=== PATIENT | male | born 1955 | race African-American/Black ===

== ENCOUNTER 2018-02-01 20:50 | Emergency (ER) | payer MEDICARE, OTHER ==
[~2018-02-01] VITALS: Ht 172.7 cm; Wt 81.6 kg
--- NOTE | 2018-02-01 20:50 | NUR ---
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 VSS NO ACUTE DISTRESS AT THIS TIME. WILL CONTINUE TO MONITOR FOR ANY CHANGES DURING THIS TIME.
--- NOTE | 2018-02-01 20:51 | NUR ---
ER MD ACOSTA AT BEDSIDE
[2018-02-01 21:17] LABS: BASOPHILS # (AUTO) 0.2 /CMM (0.0-0.2); BASOPHILS % (AUTO) 2.5 % (0.0-2.0); EOSINOPHILS % (AUTO) 1.4 % (0.0-6.0); HEMATOCRIT 51 % (39-51); HEMOGLOBIN 15.8 g/dL (13.5-17.5); LYMPHOCYTES # (AUTO) 2.2 /CMM (0.8-4.8); LYMPHOCYTES % (AUTO) 29.8 % (20.0-44.0); MEAN CORPUSCULAR HEMOGLOBIN 29 PG (26.0-33.0); MEAN CORPUSCULAR HGB CONC 31 g/dl (31.0-36.0); MEAN CORPUSCULAR VOLUME 92 fL (80-96); MONOCYTES # (AUTO) 0.5 /CMM (0.1-1.30); MONOCYTES % (AUTO) 6.6 % (2.0-12.0); NEUTROPHILS # (AUTO) 4.4 /CMM (1.8-8.9); NEUTROPHILS % (AUTO) 59.7 % (43.0-81.0); PLATELET COUNT (AUTO) 293 /CMM (150-450); RDW COEFFICIENT OF VARIATION 16.5 (11.5-15.0); RED BLOOD CELL COUNT(AUTO) 5.51 MIL/uL (4.5-6.0); WHITE BLOOD COUNT (AUTO) 7.4 K/uL (4.3-11.0)
[2018-02-01 21:35] LABS: TROPONIN I < 0.017 ng/mL (0.00-0.056)
[2018-02-01 21:53] LABS: CALCIUM, SERUM 9.3 mg/dL (8.5-10.1); CARBON DIOXIDE 27 mmol/L (21-32); CHLORIDE 105 mmol/L (98-107); CREATININE 1.1 mg/dL (0.6-1.3); GLUCOSE 159 mg/dL (74-106); SODIUM SERUM 140 mmol/L (136-145); UREA NITROGEN, BLOOD 15 mg/dL (7-18)
[2018-02-01 22:32] VITALS: BP 186/123
[2018-02-01 22:47] LABS: CHOLESTEROL 178 mg/dL (<200); HDL CHOLESTEROL 66 mg/dL (40-60); LDL 95 mg/dL (0-99); TRIGLYCERIDES 98 mg/dL (30-150)
== END 2018-02-01 22:35 | disposition left against medical advice (07) ==
LOC: ER 20:55
DX: G45.8 Other transient cerebral ischemic attacks and related syndromes (principal); R53.1 Weakness; C94.6 Myelodysplastic disease, not elsewhere classified; I10 Essential (primary) hypertension
CPT/HCPCS: 36415; 80048-TC; 80061-TC; 82962-TC; 84484-TC; 85025-TC; 85730-TC; A4606; Z7610

== ENCOUNTER 2022-05-21 12:50 | Emergency (ER) | payer MEDICARE, OTHER ==
[~2022-05-21] VITALS: Ht 167.6 cm; Wt 79.4 kg
[2022-05-21 13:06] VITALS: BP 171/109
[2022-05-21] MEDS ORDERED: NAPR-1192 PO (16:33)
--- NOTE | 2022-05-21 17:02 | NUR ---
seen and evaluated by dr colon. discharge home in stable condition.
== END 2022-05-21 17:04 | disposition home or self-care (01) ==
LOC: ER 12:55
DX: S46.001A Unspecified injury of muscle(s) and tendon(s) of the rotator cuff of right shoulder, initial encounter (principal); I10 Essential (primary) hypertension; Z86.73 Personal history of transient ischemic attack (TIA), and cerebral infarction without residual deficits; Z60.2 Problems related to living alone; W22.8XXA Striking against or struck by other objects, initial encounter; Y93.89 Activity, other specified; Y92.59 Other trade areas as the place of occurrence of the external cause; Y99.8 Other external cause status
CPT/HCPCS: 73030-TC; 73080-TC; 73110